=== PATIENT | female | born 1985 | race Caucasian/White ===

== ENCOUNTER 2019-07-21 08:43 | Emergency (ER) | payer OTHER ==
[~2019-07-21] VITALS: Ht 162.5 cm; Wt 95.3 kg
[~2019-07-21 08:43] MED LIST: FLEXERIL10 MG PO; PREDNISONE50 MG PO; PROPANOLOL PO; PROTONIX40 MG PO; ULTRAM50 MG PO
[2019-07-21 08:45] VITALS: BP 133/87
[2019-07-21] MEDS ORDERED: TYLENOL325 M1 PO (09:14)
[2019-07-21] MEDS ORDERED: NAPROSYN500 MG PO (09:14)
== END 2019-07-21 09:21 | disposition home or self-care (01) ==
LOC: ED 08:43
DX: S93.491A Sprain of other ligament of right ankle, initial encounter (principal); K21.9 Gastro-esophageal reflux disease without esophagitis; E66.9 Obesity, unspecified; R11.0 Nausea; Z79.899 Other long term (current) drug therapy; X50.1XXA Overexertion from prolonged static or awkward postures, initial encounter; Y93.89 Activity, other specified; Y92.89 Other specified places as the place of occurrence of the external cause; Y99.8 Other external cause status